=== PATIENT | female | born 1960 | race Caucasian/White ===

== ENCOUNTER → 2016-09-15 | Outpatient (CLI) | payer BC ==
[~2016-09-15] MED LIST: ASPIRIN LO-DOSE81 MG PO; BIOTIN1 MG PO; FISH OIL 1,0001 EACH PO; NIFEREX-150) (150 MG PO; PRINIVIL OR ZES10 MG PO; THERA-VITE W/ B1 TAB PO; VITAMIN D1000 UNIT PO
== END | disposition disaster alternative care site (69) ==
LOC: GRAD 10:00 → GBCOE 10:00
DX: R92.8 Other abnormal and inconclusive findings on diagnostic imaging of breast (principal)
CPT/HCPCS: G0206; G0279